=== PATIENT | male | born 1955 | race Caucasian/White ===

== ENCOUNTER 2016-07-17 11:26 | Emergency (ER) | payer BC ==
--- NOTE | 2016-07-17 13:31 | ED ---
Extremity Problem HPI - General Chief complaint: Extremity Problem,Nontraumatic Stated complaint: POSS BLOOD CLOT RT LEG Time Seen by Provider: 07/17/16 12:45 Source: patient, RN notes reviewed Mode of arrival: wheelchair Limitations: no limitations - History of Present Illness Initial comments: Patient is a 61-year-old male presents emergency room for evaluation of right leg pain. Patient states he began developing right upper leg pain about 2 nights ago. Patient states he's noticed some bruising and swelling of his veins on the medial portion of his distal upper leg. Patient states that he has a mechanical heart valve placed in 2015. Patient states he's been on Coumadin for the past 2 years. Patient states he gets his INR level checked every 2 months. Patient states that he is afraid he has a blood clot in his leg. Patient denies history of any DVTs or PEs. Patient denies current chest pain or shortness of breath. Patient denies any numbness or tingling in his toes. Patient denies calf pain. - Related Data Previous Rx's Medication Instructions Recorded predniSONE 40 mg PO DAILY #4 tab 07/17/16 Allergies Allergy/AdvReac Type Severity Reaction Status Date / Time No Known Allergies Allergy Verified 07/17/16 14:24 Review of Systems ROS Statement: Those systems with pertinent positive or pertinent negative responses have been documented in the HPI. ROS Other: All systems not noted in ROS Statement are negative. Past Medical History Past Medical History: Hyperlipidemia, Hypertension, Mitral Valve Prolapse (MVP) History of Any Multi-Drug Resistant Organisms: None Reported Past Surgical History: Hernia Repair Additional Past Surgical History / Comment(s): eye surg Past Anesthesia/Blood Transfusion Reactions: No Reported Reaction Past Psychological History: No Psychological Hx Reported Smoking Status: Never smoker Past Alcohol Use History: None Reported Past Drug Use History: None Reported - Past Family History Mother Family Medical History: No Reported History General Exam - General Exam Comments Initial Comments: sitting in exam room, no acute distress. Limitations: no limitations General appearance: alert, in no apparent distress Head exam: Present: atraumatic, normocephalic, normal inspection Eye exam: Present: normal appearance ENT exam: Present: normal exam Neck exam: Present: normal inspection Respiratory exam: Present: normal lung sounds bilaterally. Absent: respiratory distress Cardiovascular Exam: Present: regular rate, normal rhythm, normal heart sounds ( mechanical heart valve) Right Upper Leg exam: Present: full ROM. Absent: normal inspection (distended veins with pain on palpation over medial distal upper leg) Knee exam: Present: normal inspection, full ROM. Absent: tenderness Lower Leg exam: Present: normal inspection, full ROM. Absent: tenderness Ankle exam: Present: normal inspection, full ROM. Absent: tenderness Neurovascular tendon exam: Present: no vascular compromise. Absent: pulse deficit (2+ dorsal pedal and posterior tibial pulses), abnormal cap refill ( capillary refill less than 2 seconds) Back exam: Present: normal inspection Neurological exam: Present: alert, oriented X3, CN II-XII intact, normal gait Psychiatric exam: Present: normal affect, normal mood Skin exam: Present: warm, dry, intact, normal color. Absent: rash Course Vital Signs 07/17/16 07/17/16 07/17/16 12:15 15:31 15:49 Temperature 97.7 F 97.8 F 97.7 F Pulse Rate 78 73 72 Respiratory 20 16 14 Rate Blood Pressure 125/86 124/80 115/77 O2 Sat by Pulse 98 98 99 Oximetry Medical Decision Making - Medical Decision Making Patient is a 61-year-old male presents emergency room for evaluation of right upper leg pain. Ultrasound negative for DVT. Patient's INR 3.5. Patient's symptoms consistent with phlebitis. Place patient on prednisone for a few days and have him follow-up with his primary care provider. Also advised patient to apply warm compresses. Patient states he understands everything that was discussed with him. Return parameters discussed. Case discussed with Dr. Franco. - Lab Data Lab Results 07/17/16 Range/Units 13:57 PT 33.7 H (9.0-12.0) sec INR 3.5 (<1.1) - Radiology Data Radiology results: report reviewed, image reviewed Disposition Clinical Impression: Phlebitis of right leg Disposition: HOME SELF-CARE Condition: Good Instructions: Superficial Thrombophlebitis (ED) Additional Instructions: Apply warm moist heat over the area. Take prednisone as directed. Continue with at home medications. Please follow up with primary care provider in 1-2 days. If any new symptom arises or symptoms worsen, return to ER as soon as possible. Prescriptions: predniSONE 40 mg PO DAILY #4 tab Referrals: Gregory Elder MD [Primary Care Provider] - 1-2 days Time of Disposition: 15:44
[2016-07-17 14:29] LABS: INR 3.5 (<1.1); Prothrombin Time 33.7 sec (9.0-12.0)
--- NOTE | 2016-07-17 14:51 | US ---
EXAMINATION TYPE: US venous doppler duplex LE RT DATE OF EXAM: 07/17/2016 2:36 PM COMPARISON: NONE CLINICAL HISTORY: Pain. h/o valve replacement; on coumadin SIDE PERFORMED: right TECHNIQUE: The lower extremity deep venous system is examined utilizing real time linear array sonog yoli with graded compression, doppler sonography and color-flow sonography. VESSELS IMAGED: External Iliac Vein (EIV) Common Femoral Vein Deep Femoral Vein Greater Saphenous Vein * Femoral Vein Popliteal Vein Small Saphenous Vein * Proximal Calf Veins (* superficial vessels) Right Leg: Negative for DVT IMPRESSION: Right lower extremity negative for deep venous thrombosis.
[2016-07-17] MEDS ORDERED: predniSONE 20 MG TAB PO STA (15:46)
[2016-07-17 15:49] VITALS: BP 115/77; PULSE 72; RESP 14; TEMP 97.7
[2016-07-17] MEDS ORDERED: AZITHROMYCIN 500 MG TAB PO STA (19:50)
[2016-07-17] MEDS ORDERED: cefTRIAXone 250 MG VIAL IM STA (19:51)
== END 2016-07-17 15:56 | disposition home or self-care (01) ==
LOC: EC 11:26
DX: I80.9 Phlebitis and thrombophlebitis of unspecified site (principal)
CPT/HCPCS: 99284; 36415; 85610; 93971; J7512

== ENCOUNTER 2022-07-06 16:46 | Emergency (ER) | payer MEDICARE, BC ==
[2022-07-06 16:53] VITALS: BP 116/79; PULSE 82; RESP 18; TEMP 97.4
--- NOTE | 2022-07-06 16:56 | ED ---
General Adult HPI - General Chief complaint: Fall Stated complaint: Fall on thinners-R leg injury Time Seen by Provider: 07/06/22 16:54 Source: patient Mode of arrival: ambulatory Limitations: no limitations - History of Present Illness Initial comments: Patient presents to the ED with his significant other for evaluation. Patient states that he fell off of a ladder onto the ground from a height of about 10 feet 3 days ago. Patient states that he injured his right lower leg at that time. Patient states that he has developed a "bump" over his right summers, which has been waxing and waning in size. Patient states that he has had some pain in the area of his bump as well. Patient states that he is on warfarin anticoagulation therapy due to having a mitral valve replacement. Patient denies any other injury or site of pain. Patient denies head injury, LOC, headache, focal neuro deficit, neck/back/upper extremity/hip/knee/calf/ankle pain, chest pain, dyspnea, dizziness, abdominal pain, nausea or vomiting, or any other symptoms or complaints. - Related Data Previous Rx's Medication Instructions Recorded predniSONE [Deltasone] 40 mg PO DAILY #4 tab 07/17/16 Allergies Allergy/AdvReac Type Severity Reaction Status Date / Time No Known Allergies Allergy Verified 07/06/22 16:53 Review of Systems ROS Statement: Those systems with pertinent positive or pertinent negative responses have been documented in the HPI. ROS Other: All systems not noted in ROS Statement are negative. Past Medical History Past Medical History: Hyperlipidemia, Hypertension, Mitral Valve Prolapse (MVP) History of Any Multi-Drug Resistant Organisms: None Reported Past Surgical History: Hernia Repair Additional Past Surgical History / Comment(s): eye surg Past Anesthesia/Blood Transfusion Reactions: No Reported Reaction Past Psychological History: No Psychological Hx Reported Past Alcohol Use History: None Reported Past Drug Use History: None Reported - Past Family History Mother Family Medical History: No Reported History General Exam Limitations: no limitations General appearance: alert, in no apparent distress Head exam: Present: atraumatic, normocephalic ENT exam: Present: mucous membranes moist Neck exam: Present: other (Trachea is in midline). Absent: tenderness Respiratory exam: Present: normal lung sounds bilaterally. Absent: respiratory distress, wheezes, rales, rhonchi, stridor Cardiovascular Exam: Present: regular rate, normal rhythm, normal heart sounds, other (Loud S1; normal radial and dorsalis pedis pulses bilaterally) GI/Abdominal exam: Present: soft. Absent: distended, tenderness, guarding Extremities exam: Present: other (An approximately 3 cm area of swelling and ecchymosis (consistent with hematoma) is noted over the patient's right superiomedial tibial region with mild surrounding tenderness; no calf tenderness; negative Homans sign bilaterally; pelvis is stable and nontender) Back exam: Present: normal inspection. Absent: tenderness Neurological exam: Present: alert, oriented X3. Absent: motor sensory deficit Psychiatric exam: Present: normal affect, normal mood Skin exam: Present: warm, dry, intact Course Vital Signs 07/06/22 16:49 Temperature 97.4 F L Pulse Rate 82 Respiratory 18 Rate Blood Pressure 116/79 O2 Sat by Pulse 96 Oximetry Medical Decision Making - Medical Decision Making Was pt. sent in by a medical professional or institution (, PA, UI [employer] WEB DEVELOPER, urgent care, hospital, or longterm...) When possible be specific @ -No Did you speak to anyone other than the patient for history (EMS, parent, family, police, friend...)? What history was obtained from this source @ -No Did you review nursing and triage notes (agree or disagree)? Why? @ -I reviewed and agree with nursing and triage notes Were old charts reviewed (outside hosp., previous admission, EMS record, old EKG, old radiological studies, urgent care reports/EKG's, longterm records)? Report findings @ -No old charts were reviewed Differential Diagnosis (chest pain, altered mental status, abdominal pain women, abdominal pain men, vaginal bleeding, weakness, fever, dyspnea, syncope, headache, dizziness, GI bleed, back pain, seizure, CVA, palpatations, mental health, musculoskeletal)? @ -Fall, contusion, hematoma, fracture, coagulopathy EKG interpreted by me (3pts min.). @ -None done X-rays interpreted by me (1pt min.). @ -Patient's right tib/fib x-rays were reviewed myself and are negative for acute fracture. I agree with the radiologist's interpretation as above. CT interpreted by me (1pt min.). @ -None done U/S interpreted by me (1pt. min.). @ -None done What testing was considered but not performed or refused? (CT, X-rays, U/S, labs)? Why? @ -None What meds were considered but not given or refused? Why? @ -None Did you discuss the management of the patient with other professionals (pro fessionals i.e. , PA, [employer] WEB DEVELOPER, lab, RT, psych nurse, oncology social worker, mounter brass wind instruments, teacher, staff electronic warfare officer, case filler)? Give summary @ -No Was smoking cessation discussed for >3mins.? @ -No Was critical care preformed (if so, how long)? @ -No Were there social determinants of health that impacted care today? How? (Homelessness, low income, unemployed, alcoholism, drug addiction, transportation, low edu. Level, literacy, decrease access to med. care, group home, rehab)? @ -No Was there de-escalation of care discussed even if they declined (Discuss DNR or withdrawal of care, Hospice)? DNR status @ -No What co-morbidities impacted this encounter? (DM, HTN, Smoking, COPD, CAD, Cancer, CVA, ARF, Chemo, Hep., AIDS, mental health diagnosis, sleep apnea, morbid obesity)? @ -Mitral valve replacement on warfarin anticoagulation therapy. Was patient admitted / discharged? Hospital course, mention meds given and route, prescriptions, significant lab abnormalities, going to OR and other pertinent info. @ -Patient's traumatic injury/pain is localized to his right lower leg tibial region. Patient's INR is in the therapeutic range. Patient's right tib/fib x-rays are negative. Patient has no right calf swelling or tenderness on exam. I suspect that the patient's symptoms are due to contusion/hematoma. Patient was counseled about lower extremity contusions and hematomas. Patient was clearly explained return and follow-up instructions. Patient feels comfortable being discharged home with his significant other at this time. Patient was instructed to follow up closely with his primary care provider. Undiagnosed new problem with uncertain prognosis? @ -No Drug Therapy requiring intensive monitoring for toxicity (Heparin, Nitro, Insulin, Cardizem)? @ -No Were any procedures done? @ -No Diagnosis/symptom? @ -Fall with right lower extremity contusion/hematoma Acute, or Chronic, or Acute on Chronic? @ -Acute Uncomplicated (without systemic symptoms) or Complicated (systemic symptoms)? @ -Uncomplicated Side effects of treatment? @ -No Exacerbation, Progression, or Severe Exacerbation? @ -No Poses a threat to life or bodily function? How? (Chest pain, USA, MA, pneumonia, PE, COPD, DKA, ARF, appy, cholecystitis, CVA, Diverticulitis, Homicidal, Suicidal, threat to staff... and all critical care pts) @ -No - Lab Data Lab Results 07/06/22 Range/Units 17:03 PT 23.9 H (9.0-12.0) sec INR 2.4 H (<1.2) - Radiology Data Right tib/fib x-rays: No evidence of acute fracture. Mild medial ankle soft tissue swelling suggestive of underlying soft tissue injury. Disposition Clinical Impression: Fall, Contusion of right lower extremity, Hematoma of right lower extremity Disposition: HOME SELF-CARE Condition: Stable Instructions (If sedation given, give patient instructions): Contusion in Adults (ED), Fall Prevention (ED), Hematoma (ED) Additional Instructions: Return to the ER immediately should you develop new or worsening swelling or pain, shortness of breath, feeling dizzy or faint, or new or worsening symptoms. Follow up closely with your primary care provider. Is patient prescribed a controlled substance at d/c from ED?: No Referrals: Paola Reno MD [Primary Care Provider] - 1-2 days Time of Disposition: 18:13
[2022-07-06 17:24] LABS: INR 2.4 (<1.2); Prothrombin Time 23.9 sec (9.0-12.0)
--- NOTE | 2022-07-06 17:50 | XR ---
EXAMINATION TYPE: XR tibia fibula RT DATE OF EXAM: 07/06/2022 5:09 PM INDICATION: Patient age:Male; 67 years old; Reason for study: fall, right leg injury; [facility]. COMPARISON: No relevant priors TECHNIQUE: The right tibia/fibula was examined in AP and lateral projections. FINDINGS: No evidence of any acute osseous pathology or joint dislocation. Minimal soft tissue swelli ng over the medial malleolus. Mild degenerative changes of the knee joint. IMPRESSION: No evidence of acute fracture. Mild medial ankle soft tissue swelling suggestive of underlying soft t issue injury.
== END 2022-07-06 18:22 | disposition home or self-care (01) ==
LOC: EC 16:46
DX: S80.11XA Contusion of right lower leg, initial encounter (principal); I10 Essential (primary) hypertension; W11.XXXA Fall on and from ladder, initial encounter
CPT/HCPCS: 36415; 85610; 99284